=== PATIENT | male | born 2000 | race Caucasian/White ===

== ENCOUNTER 2020-05-13 05:13 | Emergency (ER) | payer OTHER, SELFPAY ==
[2020-05-13 05:14] VITALS: BP 150/128; PULSE 120; RESP 18; TEMP 36.6; O2SAT 99; BMI 20.7
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
[2020-05-13] MEDS: tetanus-dipt-pertussis 0.5 mL SDV IM (05:21)
--- NOTE | 2020-05-13 05:51 | PC.NURSE ---
wound to R eyebrow is 6 cm in length and .5 cm wid and .5 cm deep. bleeding controlled. There is a second laceration in a u shaped pattern above L eyebrow that is 12-14 cm in length and 1 cm wide and .5 cm deep. U shaped wound is oozing blood .Dr at bedside now suture wounds and pt is tolerating it well.
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
[2020-05-13 06:28] LABS: Glucose Point of Care 107 mg/dL (70-110)
[2020-05-13 06:37] VITALS: BP 150/82; PULSE 113; RESP 18; O2SAT 98
== END 2020-05-13 06:38 | disposition home or self-care (01) ==
PROVIDERS: Emergency Provider Emergency Medicine
DX: S01.81XA Laceration without foreign body of other part of head, initial encounter (principal); V89.2XXA Person injured in unspecified motor-vehicle accident, traffic, initial encounter; Z23 Encounter for immunization
CPT/HCPCS: 12014; 12345; 36416; 70450; 71045; 72125; 82962; 90471; 90715; 99281; 99283